=== PATIENT | female | born 1945 | race Caucasian/White ===

== ENCOUNTER 2022-05-07 10:53 | Outpatient (CLI) | payer MEDICARE | END 2022-05-07 10:54 | disposition home or self-care (01) | LOC: CSHMAMMO 10:53 | PROVIDERS: ATTEND Family Medicine | DX: Z12.31 Encounter for screening mammogram for malignant neoplasm of breast (principal); Z80.3 Family history of malignant neoplasm of breast; Z98.82 Breast implant status | CPT/HCPCS: 77063; 77067 ==